=== PATIENT | female | born 1950 | race Caucasian/White ===

== ENCOUNTER 2023-08-30 09:08 | Outpatient (RCR) | payer MEDICARE, BC, SELFPAY ==
[2023-08-30 09:15] VITALS: BP 120/58
[2023-08-30] MEDS: INJECTAFER 265 MG IV (09:25)
[2023-08-30 10:30] VITALS: BP 124/58
== END 2023-09-27 23:59 | disposition home or self-care (01) ==
LOC: OID 09:08
PROVIDERS: ATTENDING PHYSICIAN Nurse Practitioner
DX: D62 Acute posthemorrhagic anemia (principal)
CPT/HCPCS: 96365; J1439

== ENCOUNTER → 2024-01-24 06:24 | Day surgery (SDC) | payer MEDICARE, BC, SELFPAY | LOC: GI 06:24 | PROVIDERS: ATTENDING PHYSICIAN Internal Medicine | DX: Z12.11 Encounter for screening for malignant neoplasm of colon (principal); K64.8 Other hemorrhoids; K57.30 Diverticulosis of large intestine without perforation or abscess without bleeding; D50.9 Iron deficiency anemia, unspecified; K31.7 Polyp of stomach and duodenum; K29.80 Duodenitis without bleeding; K29.70 Gastritis, unspecified, without bleeding; D12.3 Benign neoplasm of transverse colon; K29.50 Unspecified chronic gastritis without bleeding; Z86.010 Personal history of colon polyps | CPT/HCPCS: 45385; 43239; 88305; 88342 ==

== ENCOUNTER 2024-08-03 07:06 | Emergency (ER) | payer MEDICARE, BC, SELFPAY ==
[2024-08-03] VITALS (7 sets, daily range): BP systolic 110–132; BP diastolic 48–72
[2024-08-03 07:38] LABS: % Basophils 0.8 % (0-2); % Eosinophils 5.1 % (0-6); % Immature Granulocytes 0.2 % (0-0.5); % Lymphocytes 14.7 % (20.5-51.1); % Monocytes 9.6 % (1.7-9.3); % Neutrophils 69.6 % (42.2-75.2); Absolute Eosinophils 0.3 10^3/uL (0-0.7); Absolute Lymphocytes 0.7 10^3/uL (1.2-3.4); Absolute Monocytes 0.5 10^3/uL (0.1-0.6); Absolute Neutrophils 3.4 10^3/uL (1.4-6.5); Hematocrit 38.6 % (37.0-47.0); Hemoglobin 12.5 g/dL (12.0-16.0); Mean Corp Hgb Conc. 32.4 g/dL (33.0-37.0); Mean Corpuscular Volume 95.8 fL (81.0-99.0); Mean Platelet Volume 8.9 fL (7.4-10.4); Nucleated Red Blood Cells % 0 %; Platelet Count 277 10^3/uL (130-400); Red Blood Cell Count 4.03 10^6/uL (4.20-5.40); White Blood Cell Count 4.9 10^3/uL (4.8-10.8)
[2024-08-03 07:43] LABS: ALT (SGPT) 19 U/L (0-35); AST (SGOT) 27 U/L (14-36); Albumin 4.2 g/dl (3.5-5.0); Alkaline Phosphatase 78 U/L (38-126); Blood Urea Nitrogen 16 mg/dl (7-17); Calcium 8.9 mg/dl (8.4-10.2); Carbon Dioxide 27 mmol/L (22-30); Chloride 104 mmol/L (98-107); Glucose 105 mg/dl (70-99); Potassium 4.5 mmol/L (3.5-5.1); Sodium 138 mmol/L (135-145); Total Bilirubin 0.6 mg/dl (0.2-1.3); Total Protein 6.5 g/dl (6.3-8.2); eGFR > 60.00
[2024-08-03 07:55] LABS: Troponin I < 0.012 ng/ml
--- NOTE | 2024-08-03 08:32 | ED.GENMED ---
History of Present Illness
General
Chief Complaint: Chest Pain
Source: patient
Exam Limitations: none
Time Seen by Provider: 08/03/24 08:24
Nursing documentation reviewed up to this point in time: agreed with
History of Present Illness
History of Present Illness:
Patient is a 73-year-old female who presented to the ER for evaluation. Patient reports around 6:45 AM she was sitting and felt pain across her chest that radiated into her bilateral neck. It lasted for 20 minutes and resolved on its own. She
does report she took 1 baby aspirin at the time she denies any associated shortness of breath or back pain. She does not have a cardiac history. She does have neck pain and is presently in physical therapy 2 days a week for her neck.. She denies
any actual injury to the neck recently. She Reports she was carrying [place] boxes and was removing all of her [place] decorations for the past several days. She currently is asymptomatic. She denies any associated headache.
Past History
Past History
ED Past Medical History: Psychiatric (Depression ), Other (Meningioma) and Other (Prior history of shingles with Hoang Thacker)
ED Past Surgical History: Orthopedic (1 meniscus, laminectomy)
Social History
Tobacco: Non-smoker
Alcohol: None
Drug: None
Personal:
Living: with roommate
Family History
Family History: CAD; Negative Early CAD or Sudden
Review of Systems
Review of Systems
Allergies reviewed?: Yes
All Other Systems: ROS reviewed and negative except as documented in HPI and ROS
Constitutional: Reports no symptoms
Respiratory: Denies trouble breathing
Cardiac: Reports chest pain (Chest pain has since resolved)
ABD/GI: Reports no symptoms
: Reports no symptoms
Musculoskeletal: Reports no symptoms
Skin: Reports no symptoms
Psychiatric: Reports no symptoms
Phy Exam
General Physical Exam
General Presentation: no apparent distress
General age: appears stated age
General Skin: warm and dry
General Habitus: normal
General Mental: alert
General Hydration: appears well hydrated
Cardiovascular Exam
Cardiovascular Exam: regular rate/rhythm, no murmur and normal peripheral pulses
Neurological Exam
Neurological Exam: alert and oriented x3
Musculoskeletal Exam
Musculoskeletal Exam: full ROM
Skin Exam
Skin Exam: normal color and warm/dry
Psychiatric Exam
Psychiatric Exam: normal mood/affect
Scores
Heart Score for Chest Pain Patients
STEMI patient?: Not applicable
Course
Orders/Labs/Results
Orders:
Orders
08/03/24 07:12
Electrocardiogram (*1) Urgent
Reason for Study: Chest Pain
08/03/24 07:13
EKG- Treatment ONCE
08/03/24 07:25
Complete Blood Count/With Diff Urgent
Comprehensive Metabolic Panel Urgent
Troponin I Urgent
08/03/24 08:41
EKG- Treatment ONCE
08/03/24 10:25
Electrocardiogram (*1) Urgent
Reason for Study: Chest Pain
08/03/24 10:38
Troponin I Urgent
08/03/24 10:47
Chest [CR Chest - 2 Views ] Urgent
Comment:
Reason For Exam: cp
Abnormal Lab Results
08/03/24
07:25
RBC 4.03 L 10^6/uL
(4.20-5.40)
MCHC 32.4 L g/dL
(33.0-37.0)
Absolute Lymphs (auto) 0.7 L 10^3/uL
(1.2-3.4)
Lymphocytes % 14.7 L %
(20.5-51.1)
Monocytes % 9.6 H %
(1.7-9.3)
Glucose 105 H mg/dl
(70-99)
08/03/24 07:25
08/03/24 07:25
Vital Signs
Initial and Last Documented VS:
Initial Vital Signs
Temp Pulse Resp BP Pulse Ox
98.2 F 55 16 132/67 99
08/03/24 07:09 08/03/24 07:09 08/03/24 07:09 08/03/24 07:09 08/03/24 07:09
Last Documented Vital Signs
Temp Pulse Resp BP Pulse Ox
98.2 F 58 15 112/70 98
08/03/24 07:09 08/03/24 10:38 08/03/24 10:38 08/03/24 12:00 08/03/24 12:15
MDM/Problems Addressed
Differential Diagnosis Includes:
Not limited to musculoskeletal pain less likely unstable angina, chronic neck issues
MDM/Problems Addressed:
Patient is a 73yr old female who presented with neck pain and felt pain in her jaw all region. She does have a history of chronic back pain and is in physical therapy and was recently lifting boxes putting [place] decorations away. She has no
cardiac history and is asymptomatic here in the ER. She has not had any symptoms since arrival. She denies any shortness of breath. She has had 2 negative troponins and unremarkable EKGs. She has not required anything for pain and is nontoxic
likely muscular stable for discharge home with outpatient follow
*Radiology
Radiology exam reviewed: radiology read reviewed
*Pulse Oximetry
Patient hypoxic: no
*EKG
Interpreted by ED Provider?: Yes
Heart Rate: 54
Rate: bradycardiac
Rhythm: sinus
QRS Pattern: normal QRS
Ischemia: no ischemia
*Critical Care Note
Total Time (30-74mins, 75-104mins- exclusive of procedures): Not Applicable
ED Attending Note
-
Portions of this chart may have been created with voice recognition software.� Occasional wrong word or��sound alike� substitutions may have occurred due to the inherent limitations of voice recognition software.
Discharge Plan
Departure
Patient Disposition: Home (Routine Discharge)
Date of Disposition: 08/03/24
Time of Disposition: 12:40
Patient with high blood pressure during this ER visit?: No
Condition: Fair
Covid-19: Not Applicable
Discharge Problem:
Chest pain
Instructions: Chest Pain PCP Follow Up
Prescriptions:
No Action
aripiprazole 2 MG tablet
4 mg PO DAILY
propranolol 20 MG tablet
40 mg PO BID
bupropion HCl 100 MG tablet sustained-release 12 hr
100 mg PO TID
levothyroxine 25 MCG tablet
25 mcg PO DAILY
ibuprofen 600 MG tablet
600 mg PO TIDPRN PRN (Reason: pain) Qty: 30 0RF
amoxicillin-pot clavulanate 1 TABLET tablet
1 tab PO Q12 Qty: 14 0RF
zonisamide 100 mg Capsule
100 mg PO BID
aspirin [Aspir-81] 81 mg Tablet,Delayed Release (Dr/Ec)
81 mg PO BID
escitalopram oxalate [Lexapro] 10 mg Tablet
10 mg PO DAILY
Referrals:
Alvaro Wan MD [Family Provider] -
Activity Restrictions/Additional Instructions:
Follow-up with your family doctor the next of days for reevaluation of symptoms. Return if any worsening of symptoms.
Interventions
Interventions:
*Risk Screen - Suicide Last Done: 08/03/24 07:09
*General Assessment Last Done: 08/03/24 07:09
*Neglect/Abuse Screening Last Done: 08/03/24 08:26
*ED COVID-19 Vaccine History Last Done: 08/03/24 07:09
ED- Cardiac Assessment Last Done: 08/03/24 08:26
Discharge Date and Time
Print Language: CANADIAN
[2024-08-03 11:09] LABS: Troponin I < 0.012 ng/ml
== END 2024-08-03 12:45 | disposition home or self-care (01) ==
LOC: EMR 07:06
PROVIDERS: Emergency Medicine; Nurse Practitioner; EMERGENCY PHYSICIAN Emergency Medicine; FAMILY PHYSICIAN Internal Medicine
DX: R07.9 Chest pain, unspecified (principal)
CPT/HCPCS: 99285; 71046; 80053; 84484; 85025; 93005

== ENCOUNTER → 2024-08-21 08:24 | Outpatient (REF) | payer MEDICARE, BC, SELFPAY | LOC: WDC 08:24 | PROVIDERS: ATTENDING PHYSICIAN Nurse Practitioner | DX: Z12.31 Encounter for screening mammogram for malignant neoplasm of breast (principal) | CPT/HCPCS: 77063; 77067 ==

== ENCOUNTER → 2024-09-05 10:13 | Outpatient (REF) | payer MEDICARE, BC, SELFPAY | LOC: PAVMRI 10:13 | PROVIDERS: ATTENDING PHYSICIAN Physician Assistant; FAMILY PHYSICIAN Nurse Practitioner | DX: M54.12 Radiculopathy, cervical region (principal) | CPT/HCPCS: 72141 ==

== ENCOUNTER → 2024-12-19 11:18 | Outpatient (REF) | payer MEDICARE, BC, SELFPAY | LOC: RAD 11:18 | PROVIDERS: ATTENDING PHYSICIAN Nurse Practitioner; REFERRING PHYSICIAN Physical Medicine & Rehabilitation | DX: M54.12 Radiculopathy, cervical region (principal); S12.190D Other displaced fracture of second cervical vertebra, subsequent encounter for fracture with routine healing | CPT/HCPCS: 72050 ==

== ENCOUNTER → 2025-02-23 13:31 | Outpatient (REF) | payer MEDICARE, BC, SELFPAY | LOC: HWRAD 13:31 | PROVIDERS: ATTENDING PHYSICIAN Nurse Practitioner Acute Care; FAMILY PHYSICIAN Internal Medicine; REFERRING PHYSICIAN Neurological Surgery | DX: S12.112D Nondisplaced Type II dens fracture, subsequent encounter for fracture with routine healing (principal); M54.2 Cervicalgia | CPT/HCPCS: 72125 ==

== ENCOUNTER → 2025-05-05 08:56 | Outpatient (REF) | payer MEDICARE, BC, SELFPAY | LOC: RAD 08:56 | PROVIDERS: ATTENDING PHYSICIAN Nurse Practitioner; FAMILY PHYSICIAN Internal Medicine | DX: R05.3 Chronic cough (principal) | CPT/HCPCS: 71046 ==

== ENCOUNTER 2025-05-06 08:14 | Emergency (ER) | payer MEDICARE, BC, SELFPAY ==
[2025-05-06 08:18] VITALS: BP 108/66
--- NOTE | 2025-05-06 09:00 | ED.GENMED ---
History of Present Illness
General
Chief Complaint: Musculo-Skeletal Complaint
Source: patient
Exam Limitations: none
Time Seen by Provider: 05/06/25 08:50
History of Present Illness
History of Present Illness:
Patient noted a lump above her right elbow last evening. This morning she noted a slight streak. Became concerned and presents for evaluation. She denies pain or itching. She denies fever chills or systemic symptoms. No pain with joint motion.
She is also had ongoing upper respiratory symptoms and was started on azithromycin yesterday. She had a chest outpatient chest x-ray yesterday that showed a small left costophrenic angle effusion.
Past History
Past History
ED Past Medical History: Psychiatric (Depression ), Other (Meningioma) and Other (Prior history of shingles with Hoang Thacker)
ED Past Surgical History: Orthopedic (1 meniscus, laminectomy)
Social History
Tobacco: Non-smoker
Alcohol: None
Drug: None
Personal:
Living: with roommate
Family History
Family History: CAD; Negative Early CAD or Sudden
Review of Systems
Review of Systems
All Other Systems: Not applicable
Constitutional: Denies fever or chills
Phy Exam
Physical Exam
Physical Exam:
GENERAL: Alert. NAD and oriented in no apparent distress
NECK: Soft collar in place.
ENT: Slightly congested voice
CARDIAC: Regular rate and rhythm
LUNGS: No respiratory distress
NEUROLOGICAL: Alert and oriented , grossly non-focal
SKIN: Warm and dry, small approximately 1 to 2 cm subcutaneous swelling above the right elbow posteriorly. No obvious warmth or fluctuance. There is very minimal erythema. There is the faintest streak more proximally. Nontender. She also has a
crusted area on the back of her right hand this is nontender
MUSCULOSKELETAL: No edema,no deformity.Good color
PSYCH: Normal and appropriate interaction.
Course
Orders/Labs/Results
Orders:
Orders
05/06/25 08:59
Doxycycline [Vibramycin] 100 mg PO NOW STA
US Periph Venous UPPER Ext RT Urgent
Comment:
Reason For Exam: Swelling/cord, rule out DVT
Vital Signs
Initial and Last Documented VS:
Initial Vital Signs
Temp Pulse Resp BP Pulse Ox
98.0 F 68 16 108/66 96
05/06/25 08:18 05/06/25 08:18 05/06/25 08:18 05/06/25 08:18 05/06/25 08:18
Last Documented Vital Signs
Temp Pulse Resp BP Pulse Ox
98.0 F 68 16 108/66 96
05/06/25 08:18 05/06/25 08:18 05/06/25 08:18 05/06/25 08:18 05/06/25 09:03
MDM/Problems Addressed
Differential Diagnosis Includes:
Localized swelling with small associated lymphangitis.. Looking at the swelling I would have been more suspicious of a insect bite. It does not look obviously infected fluctuant or abscess-like. However with the very minimal streak there clearly
would be an infectious component to this. Patient is very nontoxic. I see no advantage to labs at this time. There is a slight cord slight feeling to this and we will get an ultrasound to rule out thrombophlebitis. She started azithromycin
yesterday for her respiratory symptoms. Feel doxycycline would cover both respiratory and skin better. Will change to Doxy
*Radiology
Radiology exam reviewed: radiology read reviewed (Negative)
*Pulse Oximetry
SaO2: 96
Oxygen Mode of Delivery: Room air
Patient hypoxic: no
*Critical Care Note
Total Time (30-74mins, 75-104mins- exclusive of procedures): Not Applicable
ED Attending Note
-
Portions of this chart may have been created with voice recognition software.� Occasional wrong word or��sound alike� substitutions may have occurred due to the inherent limitations of voice recognition software.
Discharge Plan
Departure
Patient Disposition: Home (Routine Discharge)
Date of Disposition: 05/06/25
Time of Disposition: 10:58
Patient with high blood pressure during this ER visit?: No
Discharge Problem:
Lymphangitis, Lymphangitis right arm
Prescriptions:
New
doxycycline hyclate 100 mg capsule
100 mg PO BID 10 Days Qty: 20 0RF
No Action
aripiprazole 2 MG tablet
4 mg PO DAILY
propranolol 20 MG tablet
40 mg PO BID
bupropion HCl 100 MG tablet sustained-release 12 hr
100 mg PO TID
levothyroxine 25 MCG tablet
25 mcg PO DAILY
ibuprofen 600 MG tablet
600 mg PO TIDPRN PRN (Reason: pain) Qty: 30 0RF
amoxicillin-pot clavulanate 1 TABLET tablet
1 tab PO Q12 Qty: 14 0RF
zonisamide 100 mg Capsule
100 mg PO BID
aspirin [Aspir-81] 81 mg Tablet,Delayed Release (Dr/Ec)
81 mg PO BID
escitalopram oxalate [Lexapro] 10 mg Tablet
10 mg PO DAILY
Referrals:
Alvaro Wan MD [Family Provider, Internal Medicine] - Follow up in 2-3 days
Activity Restrictions/Additional Instructions:
The prescription was sent to your pharmacy
Stop the azithromycin and take the doxycycline instead
Return with increased redness, spreading redness, swelling, fever chills or if symptoms or not improving in the next few days
Interventions
Interventions:
*Risk Screen - Suicide Last Done: 05/06/25 08:18
*General Assessment Last Done: 05/06/25 09:24
*Neglect/Abuse Screening Last Done: 05/06/25 08:18
*Nursing Disposition Last Done: 05/06/25 11:13
ED-Musculoskeletal Assessment Last Done: 05/06/25 09:29
Discharge Date and Time
Discharge Date/Time: 05/06/25 11:14
Print Language: BELGIAN
[2025-05-06 09:24] VITALS: BMI 21.4
[2025-05-06] MEDS: VIBRAMYCIN 100 MG PO (09:25)
== END 2025-05-06 11:14 | disposition home or self-care (01) ==
LOC: EMR 08:14
PROVIDERS: EMERGENCY PHYSICIAN Emergency Medicine; FAMILY PHYSICIAN Internal Medicine
DX: I89.1 Lymphangitis (principal); R22.31 Localized swelling, mass and lump, right upper limb
CPT/HCPCS: 99284; 93971